=== PATIENT | female | born 1995 | race Caucasian/White ===

== ENCOUNTER 2020-11-21 19:41 | Inpatient (IN) ==
[2020-11-21 20:56] LABS: Bacteria,Urine Few per hpf (None-Few); Bilirubin,Urine Negative (Negative); Blood,Urine Small (Negative); Clarity,Urine Clear (Clear); Color,Urine Colorless (Yellow); Glucose,Urine (UA) Normal (Normal); Ketones,Urine Negative (Negative); Leukocyte Esterase,Urine Negative (Negative); Nitrite,Urine Negative (Negative); Protein,Urine Negative (Neg-Trace); RBC,Urine 0-3 per hpf (0-3); Specific Gravity,Urine < 1.005 (1.010-1.025); Squamous Epithelial Cell,Urine Few per hpf (None-Few); Urobilinogen,Urine Normal (Normal); WBC,Urine 0-3 per hpf (0-3)
[2020-11-21 20:57] LABS: Basophils % 0.4 %; Eosinophils % 0.3 %; Hematocrit 42.3 % (35.3-44.9); Hemoglobin 14.5 g/dL (11.5-15.4); Immature Granulocytes % 0.4 % (0-4); Lymphocytes # 2.2 K/mcL (0.6-4.6); Lymphocytes % 21.8 %; Mean Corpuscular HGB Conc 34.3 g/dL (31.6-35.5); Mean Corpuscular Hemoglobin 33.6 pg (28.0-33.3); Mean Corpuscular Volume 98.1 fL (83.0-100.0); Mean Platelet Volume 10.5 fL (9.4-12.4); Monocytes # 0.7 K/mcL (0.0-1.3); Monocytes % 6.7 %; Neutrophils # 7.1 K/mcL (1.6-8.9); Platelet Count 265 K/mcL (140-400); Red Blood Count 4.31 M/mcL (3.82-4.97); Red Cell Distribution Width 11.8 % (11.5-14.5); Segmented Neutrophils % 70.4 %; White Blood Count 10.1 K/mcL (4.3-11.1)
[2020-11-21 21:21] LABS: Amphetamine Screen,Urine Negative ng/mL (Cutoff=1000); Barbiturate Screen,Urine Negative ng/mL (Cutoff=200); Benzodiazepines Screen,Urine Negative ng/mL (Cutoff=200); Cannabinoid Screen,Urine Positive ng/mL (Cutoff = 50); Cocaine Screen,Urine Negative ng/mL (Cutoff= 300); Opiate Screen,Urine Negative ng/mL (Cutoff=300); Phencyclidine Screen,Urine Negative ng/mL (Cutoff=25)
[2020-11-21 21:38] LABS: Acetaminophen < 10 mcg/mL (10-20); BUN/Creatinine Ratio 24 (6-26); Blood Urea Nitrogen 16 mg/dL (6-20); Calcium 9.6 mg/dL (8.6-10.3); Carbon Dioxide 24 mEq/L (23-29); Chloride 105 mEq/L (98-107); Chol/HDL Ratio 2.7 (0-4.9); Cholesterol 177 mg/dL (< 200); Ethanol 39 mg/dL (Less than 10); Glucose 88 mg/dL (70-105); HDL Cholesterol 65 mg/dL (40-59); LDL Cholesterol,Calculated 81 mg/dL (< 100); Osmolality,Calculated 287 (280-300); Potassium 3.7 mEq/L (3.5-5.1); Salicylate < 2.5 mg/dL (15.0-30.0); Sodium 138 mEq/L (136-145); Triglycerides 157 mg/dL (< 150); eGFR For African Americans > 60 (> 60); eGFR For Non-African Americans > 60 (> 60)
[2020-11-22 03:43] LABS: Influenza A PCR Negative (Negative); Influenza B PCR Negative (Negative); Resp. Syncytial Virus PCR Negative (Negative)
[2020-11-22 03:44] LABS: SARS-CoV-2 by PCR (In House) Negative (Negative)
[2020-11-22] MEDS ORDERED: *HR* LORazepam 1 MG TABLET PO PRN (04:03)
[2020-11-22] MEDS ORDERED: traZODone 50 MG TABLET PO PRN ×2 (04:03→13:09)
[2020-11-22] MEDS ORDERED: Haloperidol Lactate 5 MG/ML VIAL IM PRN (04:03)
[2020-11-22] MEDS ORDERED: *HR* LORazepam 2 MG/ML VIAL IM PRN (04:03)
[2020-11-22] MEDS ORDERED: Acetaminophen 325 MG TABLET PO PRN (04:03)
[2020-11-22] MEDS ORDERED: haloperidoL 5 MG TABLET PO PRN (04:03)
[2020-11-22] MEDS: hydrOXYzine pamoate 25 MG CAPSULE PO PRN ×2 (05:19→21:13)
[2020-11-22] MEDS ORDERED: MOM Conc 10 ML UD.LIQ PO PRN (12:47)
[2020-11-22] MEDS ORDERED: Mag Hydrox/Al Hydrox/Simeth 30 ML UDC PO PRN (12:47)
[2020-11-22] MEDS: Nicotine 14 MG PATCH.TD24 TD SCH (14:48)
[2020-11-22] MEDS: lamoTRIgine 25 MG TABLET PO SCH (21:10)
[2020-11-22] MEDS: ARIPiprazole 5 MG TABLET PO SCH (21:10)
[2020-11-22] MEDS: traZODone 50 MG TABLET PO SCH (21:10)
[2020-11-23] MEDS: Nicotine 14 MG PATCH.TD24 TD SCH (08:35)
[2020-11-23] MEDS: ETHINYL ESTRADIOL PO SCH (11:16)
[2020-11-23] MEDS: NORGESTIMATE PO SCH (11:16)
[2020-11-23] MEDS: ARIPiprazole 5 MG TABLET PO SCH (20:11)
[2020-11-23] MEDS: hydrOXYzine pamoate 25 MG CAPSULE PO PRN (20:11)
[2020-11-23] MEDS: traZODone 50 MG TABLET PO SCH (20:11)
[2020-11-23] MEDS: lamoTRIgine 25 MG TABLET PO SCH (20:11)
[2020-11-24] MEDS: NORGESTIMATE PO SCH (09:12)
[2020-11-24] MEDS: ETHINYL ESTRADIOL PO SCH (09:12)
[2020-11-24] MEDS: Nicotine 14 MG PATCH.TD24 TD SCH (09:13)
[2020-11-24 09:20] VITALS: BP 124/78; PULSE 120; TEMP 98.3; O2SAT 97
== END 2020-11-24 12:38 | disposition home or self-care (01) | DRG 885 ==
LOC: EMEROOARM 19:41 → 1ANU 11-22 04:02
PROVIDERS: ADMIT Psychiatry & Neurology Psychiatry; ATTEND Psychiatry & Neurology Psychiatry